=== PATIENT | female | born 1955 | race Caucasian/White ===

== ENCOUNTER 2018-09-04 10:30 | Outpatient (REF) | payer MEDICARE, MEDICAID, SELFPAY ==
--- NOTE | 2018-09-04 10:30 | PAPFT_PTH ---
PATIENT: Sharron Plascencia LOC: [facility] U#:[id number] AGE/SX: 63/F ROOM: RE09/04/[address]: Khadijah Fernando : 1955 BED: DIS: 09/04/2018 SPEC #: [id number] RECD: 09/05/18 12:53 STATUS: DEE DEE REPema #: [id number] JENNIFER: 09/04/18 10:[address]: Khadijah Fernando DEPT: [facility] Cytology RECD BY: Megan Robert Tissues: 1 - CX/ENDOCX FOR PAP SMEARS Procedures: PAP THIN PREP/[facility] Screening Comments: [id number] (UNSATISFACTORY FOR EVALUATION)
== END 2018-09-04 10:50 ==
LOC: NCHCN 10:30
PROVIDERS: PCP Family Medicine; Visit Provider Family Medicine
DX: Z12.4 Encounter for screening for malignant neoplasm of cervix (principal)
CPT/HCPCS: 88142

== ENCOUNTER 2019-01-29 11:17 | Outpatient (REF) | payer MEDICARE, MEDICAID, SELFPAY ==
--- NOTE | 2019-01-29 10:30 | PAPFT_PTH ---
[facility]: Sharron Plascencia [id number] AGE/SX: 63/F ROOM: RE01/29/[address]: Khadijah Fernando : 1955 BED: DIS: 01/29/2019 SPEC #: [id number] RECD: 01/30/19 12:45 STATUS: DEE DEE REPema #: [id number] JENNIFER: 01/29/19 10:[address]: Khadijah Fernando DEPT: [facility] Cytology RECD BY: Megan Robert Tissues: 1 - CX/ENDOCX FOR PAP SMEARS Procedures: PAP THIN PREP/[facility] Screening HPV DNA PROBE Comments: [id number]
== END 2019-01-29 11:37 ==
LOC: NCHCN 11:17
PROVIDERS: PCP Family Medicine; Visit Provider Family Medicine
DX: Z12.4 Encounter for screening for malignant neoplasm of cervix (principal); Z11.51 Encounter for screening for human papillomavirus (HPV)
CPT/HCPCS: 88142; 87624

== ENCOUNTER 2020-02-09 16:28 | Outpatient (REF) | payer MEDICARE, MEDICAID, SELFPAY ==
--- NOTE | 2020-02-09 14:00 | PAPFT_PTH ---
PATIENT: Sharron Plascencia LOC: [facility]#:[id number] AGE/SX: 64/F ROOM: RE02/09/[address]: Khadiajh Fernando : 1955 BED: DIS: 02/09/2020 SPEC #: [id number] RECD: 02/10/20 12:48 STATUS: DEE DEE REPema #: [id number] JENNIFER: 02/09/20 14:[address]: Khadijah Fernando DEPT: [facility] Cytology RECD BY: Megan Robert Tissues: 1 - CX/ENDOCX FOR PAP SMEARS Procedures: PAP THIN PREP/[facility] Screening Comments: [id number]
== END 2020-02-09 16:48 ==
LOC: NCHCN 16:28
PROVIDERS: PCP Family Medicine; Visit Provider Family Medicine
DX: Z12.4 Encounter for screening for malignant neoplasm of cervix (principal); Z87.42 Personal history of other diseases of the female genital tract; Z00.00 Encounter for general adult medical examination without abnormal findings
CPT/HCPCS: 88142

== ENCOUNTER 2020-06-28 15:01 | Outpatient (REF) | payer MEDICARE, MEDICAID, SELFPAY ==
[2020-06-28 21:38] LABS: COMMENT (LAB VIEW ONLY) 125.18 mg/dL; Microalb ug/mg Crea 11.7 ug/mg Cr
== END 2020-06-28 15:02 | disposition home or self-care (01) ==
LOC: NCHCN 15:01
PROVIDERS: PCP Family Medicine; Visit Provider Family Medicine
DX: E11.9 Type 2 diabetes mellitus without complications (principal)
CPT/HCPCS: 82043; 82570

== ENCOUNTER 2021-06-02 15:29 | Outpatient (REF) | payer OTHER, MEDICAID, SELFPAY ==
[2021-06-02 21:58] LABS: Hemoglobin A1C 7.2 % (<5.7)
[2021-06-02 22:00] LABS: ALT 27 U/L (14-59); AST 17 U/L (15-37); Albumin 4.1 g/dL (3.4-5.0); Alkaline Phosphatase 100 U/L (46-116); Anion Gap 9.7 mmol/L (3-11); BUN 11 mg/dL (7-18); Bilirubin, Total 0.5 mg/dL (0.2-1.0); CO2 29.3 mmol/L (21.0-32.0); CREATININE 0.7 mg/dL (0.55-1.02); Calcium 9.2 mg/dL (8.5-10.1); Chloride 102 mmol/L (98-107); Glucose 105 mg/dL (74-106); Magnesium 2.2 mg/dL (1.8-2.4); Potassium 4.2 mmol/L (3.5-5.1); Sodium 141 mmol/L (136-145); TSH 1.59 uIU/mL (0.36-3.74); Total Protein 7.3 g/dL (6.4-8.2)
[2021-06-04 12:19] LABS: COVID-19 RT-PCR UVMMC Result Negative (Negative)
== END 2021-06-02 15:30 | disposition home or self-care (01) ==
LOC: NCHCN 15:29
PROVIDERS: PCP Family Medicine; Visit Provider Registered Nurse
DX: R11.10 Vomiting, unspecified (principal); R42 Dizziness and giddiness; Z20.822 Contact with and (suspected) exposure to COVID-19; E11.9 Type 2 diabetes mellitus without complications
CPT/HCPCS: 80053; U0003; 83036; 83735; 84443

== ENCOUNTER 2021-06-06 16:24 | Outpatient (REF) | payer OTHER, MEDICAID, SELFPAY ==
[2021-06-06 14:54] LABS: HCT 44.6 % (36.0-46.0); HGB 14.1 g/dL (11.2-15.7); MCH 29.1 pg (27.0-33.0); MCHC 31.6 % (32.0-36.0); MCV 92.1 fL (80-95); MPV 9.9 fL (8.0-11.0); Platelet Count 362 10^3/uL (130-400); RBC 4.84 10^6/uL (3.93-5.22); RDW 12.7 % (11.7-14.6); RDW-SD 42.5 fL; WBC 8.46 10^3/uL (4.4-10.8)
== END 2021-06-06 16:25 | disposition home or self-care (01) ==
LOC: NCHCN 16:24
PROVIDERS: PCP Family Medicine; Visit Provider Registered Nurse
DX: R42 Dizziness and giddiness (principal)
CPT/HCPCS: 85027

== ENCOUNTER 2022-08-06 14:51 | Outpatient (REF) | payer OTHER, MEDICAID, SELFPAY ==
[2022-08-06 15:29] LABS: COMMENT (LAB VIEW ONLY) 38.12 mg/dL; Microalb ug/mg Crea 13.9 ug/mg Cr
== END 2022-08-06 14:52 | disposition home or self-care (01) ==
LOC: NCHCN 14:51
PROVIDERS: PCP Family Medicine; Visit Provider Family Medicine
DX: E11.9 Type 2 diabetes mellitus without complications (principal)
CPT/HCPCS: 82043; 82570